=== PATIENT | female | born 1980 | race Hispanic/Latino ===

== ENCOUNTER → 2017-12-06 | Outpatient (CLI) | payer MEDICAID ==
[~2017-12-06] MED LIST: INDO50SU3 RC; TYL3 PO
== END ==
LOC: SHCH 15:38
PROVIDERS: ATTEND Internal Medicine Cardiovascular Disease
DX: I95.1 Orthostatic hypotension (principal); E03.9 Hypothyroidism, unspecified
CPT/HCPCS: 93306

== ENCOUNTER 2018-09-18 05:26 | Emergency (ER) | payer MEDICAID ==
[2018-09-18] MEDS ORDERED: GUAIFENESIN-DM 200/20 MG 10 ML ONE (06:52)
== END 2018-09-18 06:56 | disposition home or self-care (01) ==
LOC: EDH 05:26
DX: J06.9 Acute upper respiratory infection, unspecified (principal); R19.7 Diarrhea, unspecified; R11.2 Nausea with vomiting, unspecified; Z98.51 Tubal ligation status; Z90.49 Acquired absence of other specified parts of digestive tract; Z72.0 Tobacco use
CPT/HCPCS: 87804; 99281

== ENCOUNTER 2021-05-24 11:09 | Emergency (ER) | payer MEDICAID ==
[~2021-05-24] VITALS: Ht 154.9 cm; Wt 77.1 kg
[2021-05-24 11:17] VITALS: BP 119/77
[2021-05-24 11:35] LABS: BASOPHILS % (AUTO) 0.6 % (0.0-5.0); EOSINOPHILS % (AUTO) 4.9 % (0.0-8.0); HEMATOCRIT 46.1 % (36-48); LYMPHOCYTES % (AUTO) 23.2 % (21.0-51.0); MEAN CORPUSCULAR HGB CONC 33.6 g/dL (32.0-36.0); MEAN CORPUSCULAR VOLUME 95.2 fL (79-99); MONOCYTES % (AUTO) 8.7 % (3.0-13.0); NEUTROPHILS % (AUTO) 62.2 % (40.0-77.0); PLATELET COUNT (AUTO) 326 K/uL (130-400); RED BLOOD CELL COUNT(AUTO) 4.84 MIL/uL (4.00-5.50); RED CELL DISTRIBUTION WIDTH 12.5 % (11.0-15.5); WHITE BLOOD COUNT (AUTO) 6.8 K/uL (4.8-10.8)
[2021-05-24 11:54] LABS: CREATININE 0.6 mg/dL (0.5-1.5); POTASSIUM 4.8 mmol/L (3.5-5.1)
[2021-05-24 12:04] LABS: ALBUMIN 4.1 g/dL (3.5-5.0); BILIRUBIN,TOTAL 0.3 mg/dL (0.2-1.0); TOTAL PROTEIN, SERUM 7.7 g/dL (6.0-8.3)
[2021-05-24] MEDS ORDERED: KETOROLAC 30MG VIAL (30MG/ML) IV ONE (14:00)
[2021-05-24] MEDS ORDERED: 0.9%NACL 1000ML 1,000 ML IV ONE (14:00)
[2021-05-24] MEDS ORDERED: FAMOTIDINE 20MG VIAL IV ONE (14:00)
[2021-05-24] MEDS ORDERED: PROMETHAZINE HCL 25 MG/ML 1ML AMPULE IM ONE (14:00)
[2021-05-24 14:24] LABS: APPEARANCE,URINE Clear (CLEAR); BILIRUBIN,URINE Negative (NEGATIVE); COLOR,URINE Yellow (YELLOW); GLUCOSE, URINE (UA) Negative (NEGATIVE); KETONES,URINE Trace mg/dL (NEGATIVE); LEUKOCYTE ESTERASE ,URINE Negative (NEGATIVE); NITRATE,URINE Negative (NEGATIVE); OCCULT BLOOD,URINE Negative (NEGATIVE); PH,URINE 5.5 (5.0-8.0); PROTEIN,URINE Negative (NEGATIVE); UROBILINOGEN,URINE 0.2 mg/dL (0.2-1.0)
[2021-05-24 15:00] VITALS: BP 128/81
[2021-05-24 16:25] VITALS: BP 122/80
[2021-05-24] MEDS ORDERED: DICY20TA2 PO (16:42)
[2021-05-24] MEDS ORDERED: ONDA4TAB10 PO (16:42)
== END 2021-05-24 17:15 | disposition home or self-care (01) ==
LOC: EDH 11:09
DX: R10.12 Left upper quadrant pain (principal); R11.2 Nausea with vomiting, unspecified; Z79.899 Other long term (current) drug therapy; Z90.49 Acquired absence of other specified parts of digestive tract; Z90.710 Acquired absence of both cervix and uterus; F41.9 Anxiety disorder, unspecified; F32.9 Major depressive disorder, single episode, unspecified
CPT/HCPCS: 36415; 71045; 74176; 80053; 81003; 83690; 84484; 85025; 93005; 96361; 96372; 96374; 96375; 99285; J1885; J2550; J7030; S0028; J3490